=== PATIENT | male | born 1990 | race African-American/Black ===

== ENCOUNTER 2017-01-20 18:24 | Emergency (ER) | payer BC, OTHER ==
[~2017-01-20] VITALS: Ht 180.3 cm; Wt 131.5 kg
[~2017-01-20 18:24] MED LIST: TERB250 PO; Z.0.NO CURRENT MEDS
[2017-01-20 18:33] VITALS: BP 123/68; PULSE 80; RESP 16; TEMP 98; O2SAT 98
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
[2017-01-20] MEDS ORDERED: KETOROLAC TROMETHAMINE 60 MG/2 ML (IM) VIAL IM ONE (19:45)
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
[2017-01-20] MEDS ORDERED: NAPR500 PO (20:01)
[2017-01-20] MEDS ORDERED: CYCL1TAB29 PO (20:01)
== END 2017-01-20 20:10 | disposition home or self-care (01) ==
LOC: PHEFT 18:24
DX: M54.5 Low back pain (principal); V73.5XXA Driver of bus injured in collision with car, pick-up truck or van in traffic accident, initial encounter; Y93.89 Activity, other specified; Y92.481 Parking lot as the place of occurrence of the external cause; F17.210 Nicotine dependence, cigarettes, uncomplicated
CPT/HCPCS: 72100; 96372; 99283; J1885